=== PATIENT | female | born 1955 | race Caucasian/White ===

== ENCOUNTER 2019-06-21 01:44 | Emergency (ER) | payer OTHER ==
[~2019-06-21] VITALS: Ht 139.7 cm; Wt 67.1 kg
--- NOTE | 2019-06-21 02:10 | NUR ---
Patient ambulating with steady gait. A&O x4. c/o sharp RUQ abd pain that radiates to the back. 8/10 on the pain scale per patient. Patient states pain started yesterday and getting worse. Patient also states that she took Tylenol and Mylanta 4hrs [employer] with no improvement. Patient denies any N / V / D. Patient breathing even and unlabored. denies any SOB. Speech is clear and able to make needs known / follow commands. Denies any discomfort. at bedside to translate. Patient able to answer simple questions.
--- NOTE | 2019-06-21 02:15 | NUR ---
Dr. Bingham at bedside for MSE
[2019-06-21] MEDS ORDERED: MORPHINE SULFATE 2 MG/1 ML DISP.SYRIN ONE (02:27)
[2019-06-21] MEDS ORDERED: ONDANSETRON 4 MG/2 ML VIAL ONE (02:27)
[2019-06-21] MEDS ORDERED: IV NORMAL SALINE 1000 ML BAG IV ONE (02:30)
[2019-06-21] MEDS ORDERED: MORPHINE SULFATE 2 MG/1 ML DISP.SYRIN IV ONE (02:30)
[2019-06-21] MEDS ORDERED: ONDANSETRON 4 MG/2 ML VIAL IV ONE (02:30)
[2019-06-21 02:41] LABS: *BILIRUBIN,URIN NEGATIVE (NEGATIVE); *COLOR,URINE YELLOW (YELLOW); *KETONES,URINE NEGATIVE (NEGATIVE); *UROBILINOGEN,URINE 0.2 E.U./dl (NORMAL); LEUKOCYTE ESTERASE ,URINE TRACE (NEGATIVE); NITRITE, URINE NEGATIVE (NEGATIVE); UGLUCOSE NEGATIVE (NEGATIVE)
--- NOTE | 2019-06-21 02:41 | NUR ---
Patient taken to CT scan in stable condition
[2019-06-21 02:43] LABS: BASOPHILS # (AUTO) 0.1 K/uL (0.0-8.0); BASOPHILS % (AUTO) 1.1 % (0.0-2.0); EOSINOPHILS # (AUTO) 0.1 K/uL (0.0-0.7); EOSINOPHILS % (AUTO) 0.6 % (0.0-7.0); HEMATOCRIT 37.6 % (31.2-41.9); LYMPHOCYTES # (AUTO) 3.5 K/uL (20.0-40.0); LYMPHOCYTES % (AUTO) 41.2 % (20.5-51.5); MEAN CORPUSCULAR HEMOGLOBIN 31.4 uug (24.7-32.8); MEAN CORPUSCULAR HGB CONC 35 g/dL (32.3-35.6); MEAN CORPUSCULAR VOLUME 90.9 fL (75.5-95.3); MONOCYTES # (AUTO) 0.8 K/uL (2.0-10.0); MONOCYTES % (AUTO) 8.9 % (0.0-11.0); NEUTROPHILS # (AUTO) 4.1 K/uL (1.8-8.9); NEUTROPHILS % (AUTO) 48.2 % (38.5-71.5); PLATELET COUNT (AUTO) 185 K/uL (179-408); RED BLOOD CELL COUNT(AUTO) 4.14 MIL/uL (3.63-4.92); WHITE BLOOD COUNT (AUTO) 8.6 K/uL (3.8-11.8)
--- NOTE | 2019-06-21 02:51 | NUR ---
Patient back from CT scan in stable condition
[2019-06-21 02:53] LABS: *BLOOD, URINE TRACE (NEGATIVE); *CLARITY,URINE HAZY (CLEAR)
[2019-06-21 02:55] LABS: BILIRUBIN,DIRECT 0.1 mg/dL (0.0-0.2); BILIRUBIN,TOTAL 0.4 mg/dL (0.2-1.0); CREATININE 0.7 mg/dL (0.6-1.3); POTASSIUM 3.9 mmol/L (3.5-5.1); TOTAL PROTEIN, SERUM 8.2 g/dL (6.4-8.2)
[2019-06-21 02:57] LABS: BACTERIA,URINE NONE SEEN /HPF (NONE SEEN); SQUAMOUS EPITHELIAL CELL,UR FEW /HPF (NONE SEEN)
[2019-06-21] MEDS ORDERED: MORPHINE SULFATE 4 MG/1 ML DISP.SYRIN ONE (03:58)
[2019-06-21] MEDS ORDERED: MORPHINE SULFATE 4 MG/1 ML DISP.SYRIN IV ONE (04:00)
--- NOTE | 2019-06-21 04:22 | NUR ---
Patient in bed AA&O x4. Breathing even and unlabored. NAD noted
--- NOTE | 2019-06-21 05:50 | NUR ---
Patient does not wish to proceed with medical care recommended by Dr. Bingham. Patient given information related to possible complications, up to and including , which could occur as a result of leaving the hospital at this time. Patient verbalizes understanding of risks involved due to leaving against medical advice. Patient has signed AMA form. IV removed. Catheter intact and site benign. Pressure and 4x4 gauze applied to site. No bleeding noted. Patient ambulating with steady gait
[2019-06-21 05:57] VITALS: BP 127/70
== END 2019-06-21 05:50 | disposition left against medical advice (07) ==
LOC: ER 01:59
DX: R10.11 Right upper quadrant pain (principal); E78.5 Hyperlipidemia, unspecified; F32.9 Major depressive disorder, single episode, unspecified; Z90.49 Acquired absence of other specified parts of digestive tract; Z79.899 Other long term (current) drug therapy
CPT/HCPCS: 36415; 71045; 74176; 80048; 80076; 81000; 81001; 83690; 84484; 85025; 85730; 87086; 93005; 96374; 96375; 96376; 99285; J2270 ×2; J2405; 70030-TC; A4663; J7030

== ENCOUNTER 2019-06-24 23:55 | Emergency (ER) | payer OTHER ==
[~2019-06-24] VITALS: Ht 139.7 cm; Wt 67.1 kg
--- NOTE | 2019-06-25 00:25 | NUR ---
PATIENT WAS MSE BY DR PETTIT IN ROOM 05A. PATIENT A & O X3.
[2019-06-25] MEDS ORDERED: ONDANSETRON ODT 4 MG TAB.RAPDIS ONE (00:28)
[2019-06-25] MEDS ORDERED: HYDROCODONE/APAP 5-325MG TABLET ONE (00:28)
[2019-06-25] MEDS ORDERED: ACYCLOVIR 200 MG CAPSULE ONE (00:28)
[2019-06-25] MEDS ORDERED: HYDROCODONE/APAP 5-325MG TABLET PO ONE (00:30)
[2019-06-25] MEDS ORDERED: ONDANSETRON ODT 4 MG TAB.RAPDIS SL ONE (00:30)
[2019-06-25] MEDS ORDERED: ACYCLOVIR 400 MG TABLET PO ONE (00:30)
[2019-06-25 00:35] VITALS: BP 152/81
--- NOTE | 2019-06-25 00:40 | NUR ---
Patient noted no adverse reaction to meds given. Pain 6/10. Will conitune to monitor.
--- NOTE | 2019-06-25 00:41 | NUR ---
Patient discharged to home in stable condition. Written and verbal after care instructions given. Patient and daughter verbalizes understanding of instructions.
== END 2019-06-25 00:44 | disposition home or self-care (01) ==
LOC: ER 23:59
DX: B02.9 Zoster without complications (principal); R10.84 Generalized abdominal pain; E78.5 Hyperlipidemia, unspecified; F32.9 Major depressive disorder, single episode, unspecified; Z79.899 Other long term (current) drug therapy
CPT/HCPCS: A4663; Q0162

== ENCOUNTER 2020-12-17 19:09 | Emergency (ER) | payer OTHER ==
[~2020-12-17] VITALS: Ht 165.1 cm; Wt 65.8 kg
[~2020-12-17 19:09] MED LIST: METO25TA6 PO; MIRT-93 PO; VALS160T29 PO
--- NOTE | 2020-12-17 19:40 | NUR ---
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 Denies nausea, vomiting, diarrhea. Pt. has hx of an ulcer, so came in because she was concerned.
[2020-12-17] MEDS ORDERED: PANTOPRAZOLE SODIUM 40 MG VIAL IV ONE (20:00)
[2020-12-17] MEDS ORDERED: HYDROMORPHONE 1 MG/1 ML DISP.SYRIN IV ONE (20:00)
[2020-12-17] MEDS ORDERED: ONDANSETRON 4 MG/2 ML VIAL IV ONE ×2 (20:00→22:30)
[2020-12-17 20:11] LABS: HEMATOCRIT 37.4 % (31.2-41.9); MEAN CORPUSCULAR HEMOGLOBIN 31.8 uug (24.7-32.8); MEAN CORPUSCULAR VOLUME 90.2 fL (75.5-95.3); PLATELET COUNT (AUTO) 233 K/uL (179-408)
[2020-12-17 20:17] LABS: CREATININE 0.7 mg/dL (0.6-1.3); POTASSIUM 4.2 mmol/L (3.5-5.1)
[2020-12-17 20:23] LABS: BILIRUBIN,DIRECT 0.1 mg/dL (0.0-0.2); BILIRUBIN,TOTAL 0.4 mg/dL (0.2-1.0); TOTAL PROTEIN, SERUM 8.5 g/dL (6.4-8.2)
[2020-12-17] MEDS ORDERED: HYDROMORPHONE 1 MG/1 ML DISP.SYRIN ONE (20:38)
[2020-12-17] MEDS ORDERED: PANTOPRAZOLE SODIUM 40 MG VIAL ONE (20:38)
[2020-12-17] MEDS ORDERED: ONDANSETRON 4 MG/2 ML VIAL ONE ×2 (20:38→21:49)
[2020-12-17] MEDS ORDERED: SWABABLE VALVE TRANSFER SET EA MC ONE (20:43)
[2020-12-17] MEDS ORDERED: IV NORMAL SALINE 250 ML IV ONE (20:43)
[2020-12-17] MEDS ORDERED: IOHEXOL 300MG/ML 100 ML INFUS..BTL ONE (20:43)
[2020-12-17] MEDS ORDERED: MORPHINE SULFATE 4 MG/1 ML DISP.SYRIN IV ONE (20:45)
[2020-12-17] MEDS ORDERED: MORPHINE SULFATE 4 MG/1 ML DISP.SYRIN ONE (20:47)
[2020-12-17] MEDS ORDERED: MORPHINE SULFATE 2 MG/1 ML DISP.SYRIN ONE (20:48)
--- NOTE | 2020-12-17 20:51 | NUR ---
Pt taken to CT
[2020-12-17] MEDS ORDERED: HYDR-4209 PO (22:37)
[2020-12-17] MEDS ORDERED: ONDA4TAB5 PO (22:37)
[2020-12-17 22:48] LABS: *OCCULT BLOOD STOOL NEGATIVE (NEGATIVE)
[2020-12-17] MEDS ORDERED: METOCLOPRAMIDE HCL 10 MG/2 ML VIAL ONE (22:58)
[2020-12-17] MEDS ORDERED: diphenhydrAMINE 50 MG/1 ML VIAL ONE (22:58)
[2020-12-17] MEDS ORDERED: METOCLOPRAMIDE HCL 10 MG/2 ML VIAL IV ONE (23:00)
[2020-12-17] MEDS ORDERED: diphenhydrAMINE 50 MG/1 ML VIAL IV ONE (23:00)
[2020-12-17 23:04] LABS: *BILIRUBIN,URIN NEGATIVE (NEGATIVE); *CLARITY,URINE CLEAR (CLEAR); *COLOR,URINE PINK (YELLOW); *KETONES,URINE NEGATIVE (NEGATIVE); *UROBILINOGEN,URINE 0.2 E.U./dl (NORMAL); LEUKOCYTE ESTERASE ,URINE NEGATIVE (NEGATIVE); NITRITE, URINE NEGATIVE (NEGATIVE); UGLUCOSE NEGATIVE (NEGATIVE)
[2020-12-17 23:14] LABS: *BLOOD, URINE TRACE (NEGATIVE); BACTERIA,URINE NONE SEEN /HPF (NONE SEEN); SQUAMOUS EPITHELIAL CELL,UR FEW /HPF (NONE SEEN)
[2020-12-18 00:03] VITALS: BP 125/79
--- NOTE | 2020-12-18 00:03 | NUR ---
Patient discharged to home in stable condition. Written and verbal after care instructions given. Patient verbalizes understanding of instructions. Stressed follow up or return to ER for worsening s/s. Pt walks with steady gait. All belongings taken.
== END 2020-12-18 00:04 | disposition home or self-care (01) ==
LOC: ER 19:11
DX: R10.13 Epigastric pain (principal); E78.5 Hyperlipidemia, unspecified; Z90.49 Acquired absence of other specified parts of digestive tract; Z79.899 Other long term (current) drug therapy; R94.31 Abnormal electrocardiogram [ECG] [EKG]; F32.9 Major depressive disorder, single episode, unspecified; R03.0 Elevated blood-pressure reading, without diagnosis of hypertension
CPT/HCPCS: 36415; 71045; 74177; 80048; 80076; 81001; 82270; 83690; 84484 ×2; 85025; 85730; 93005; 96374; 96375; 96376; 99285; C9113; J1170; J1200; J2270 ×2; J2405 ×2; J2765; Q9967; 70030-TC; A4663; J7050